=== PATIENT | male | born 1985 | race Caucasian/White ===

== ENCOUNTER 2023-11-15 19:49 | Emergency (ER) | payer BC ==
[2023-11-15 20:17] LABS: BASOPHILS ABSOLUTE AUTO 0.05 K/uL (0.00-0.20); BASOPHILS PERCENT AUTO 0.5 % (0.0-1.0); EOSINOPHILS ABSOLUTE AUTO 0.23 K/uL (0.00-0.45); EOSINOPHILS PERCENT AUTO 2.1 % (0.0-6.0); HEMATOCRIT 47.6 % (42.0-52.0); HEMOGLOBIN 16.5 g/dL (14.0-18.0); IMMATURE GRAN ABSOLUTE AUTO 0.03 K/uL (0.00-0.05); IMMATURE GRAN PERCENT AUTO 0.3 % (0.0-0.4); LYMPHOCYTES ABSOLUTE AUTO 3.88 K/uL (1.00-4.80); LYMPHOCYTES PERCENT AUTO 36.1 % (24.0-44.0); MEAN CORPUSCULAR HEMOGLOBIN 29.7 pg (28.0-32.0); MEAN CORPUSCULAR HGB CONC 34.7 g/dL (32.0-36.0); MEAN CORPUSCULAR VOLUME 85.6 fL (83.0-99.0); MEAN PLATELET VOLUME 9.9 fL (9.4-12.4); MONOCYTES PERCENT AUTO 7.4 % (0.0-8.0); NEUTROPHILS ABSOLUTE AUTO 5.75 K/uL (1.80-7.70); NEUTROPHILS PERCENT AUTO 53.6 % (41.0-71.0); PLATELET COUNT,PLT 246 K/uL (150-400); RED BLOOD CELL COUNT 5.56 M/uL (4.52-5.90); WHITE BLOOD CELL COUNT,WBC 10.74 K/uL (3.9-11.3)
[2023-11-15] MEDS: Iopamidol 755 MG/ML 500 ML Multipack Bottle IVPUSH STA (20:19)
[2023-11-15] MEDS: Labetalol 100 MG/20 ML MDV IVPUSH ONE (20:35)
[2023-11-15 20:39] LABS: INR 1.07 (0.86-1.11); PTT,PARTIAL THROMBOPLSTIN TIME 28.4 SEC (23.9-30.7)
[2023-11-15 20:56] LABS: A/G RATIO 1.1 (0.9-1.6); ALANINE AMINOTRANSFERASE,ALT 63 IU/L (14-63); ALBUMIN 4.1 g/dL (3.4-5.0); ALKALINE PHOSPHATASE 71 U/L (46-116); ASPARTATE AMNIOTRANSFERASE,AST 25 IU/L (15-37); BILIRUBIN TOTAL 0.9 mg/dL (0.2-1.0); BLOOD UREA NITROGEN,BUN 16 mg/dL (7.0-18.0); CALCIUM 9.4 mg/dL (8.5-10.1); CARBON DIOXIDE,CO2 25.9 mmol/L (21.0-32.0); CHLORIDE,CL 104 mmol/L (98-107); CREATININE 1.2 mg/dL (0.8-1.3); EST CRCL DRUG DOSING (CG) 88.02 mL/min; GLUCOSE RANDOM 113 mg/dL (74-106); MAGNESIUM 2.2 mg/dL (1.8-2.4); POTASSIUM,K 3.8 mmol/L (3.5-5.1); PROTEIN TOTAL,TP 7.8 g/dL (6.4-8.2); SODIUM,NA 140 mmol/L (136-148)
[2023-11-15] MEDS: Tenecteplase 50 MG Kit IVPUSH ONE (20:57)
[2023-11-15 21:08] LABS: ESTIMATED GFR 79 mL/min (>60)
== END 2023-11-15 22:24 ==
LOC: MW.ED 19:49
DX: I63.9 Cerebral infarction, unspecified (principal); H53.462 Homonymous bilateral field defects, left side; Z75.8 Other problems related to medical facilities and other health care
CPT/HCPCS: 36415; 70450; 70496; 70498; 80053; 82947; 83735; 84484; 85025; 85610; 85730; 93005; 96374; 96375; 99285; J1921; J3101; Q9967; 93010

== ENCOUNTER 2024-07-30 09:28 | Emergency (ER) | payer SELFPAY | END 2024-07-30 10:10 | disposition home or self-care (01) | LOC: MW.ED 09:28 | DX: J32.9 Chronic sinusitis, unspecified (principal); I10 Essential (primary) hypertension; Z79.899 Other long term (current) drug therapy | CPT/HCPCS: 99283 ==